=== PATIENT | female | born 1985 | race Caucasian/White ===

== ENCOUNTER → 2018-02-28 | Outpatient (CLI) | payer OTHER ==
[~2018-02-28] MED LIST: ACEASPCAF; ACEASPCAF PO; ACET500 PO; ALBU90OI INH; ALBU90OI6; ALBU90OI61 INH; AZIT250 PO; BUSP5 PO; Bactrim Ds Tab1 EACH PO; CIPR500 PO; CITA20 MT; CITA20 PO; CLIN300 PO; CLON.2 PO; CLON1 PO; CLON2 PO; CODACE30 PO; CRUTCH4 USE; CYCL10; CYCL10 PO; Celexa40 MG PO; Cleocin HCl150 MG PO; DIAZ5; DIAZ5 PO; DIPATR PO; DOCU100 PO; DOXY100 PO; DOXY100T53; Estradiol0.5 MG PO; GABA300 PO; GABA800 MT; HYDACE10B; HYDACE10B PO; HYDACE5 PO; HYDACE7.5 PO; HYDPAM25; IBUP200 PO; IBUP400 PO; IBUP600 PO; IBUP800 PO; INDO50 PO; KETO10 PO; Keflex500 MG PO; LABE100; LISI5; LORA1 PO; METF500 PO; METR250 PO; NAPR500 PO; NAPR550 PO; NIFE30ER; NYST100SU MT; Neurontin300 MG PO; Norco 10-325 T1 EACH PO; OMEP10ER; OMEP20ER PO; OXYACE5T; OXYACE5T PO; OXYB5 PO; OXYC5 PO; PANT40 PO; PHENA100 PO; PHENA200 PO; PREVPAC PO; PROG100 PO; PROGESTERONE PO; PROM25 PO; PROP10; RANI150; RANI150 PO; RXCYCL10 PO; RXHYDACE PO; RXNAPNA550 PO; RXPROM25 PO; RXTRAM50 PO; SULTRIDS PO; SULTRISS PO; TIZANIDINE HCL2 MG PO; TRAM50 PO; TRAZ50 PO; UNKNOWN ABX PO
== END ==
LOC: LAB 13:56 → LAB SHORT 13:56
DX: L02.811 Cutaneous abscess of head [any part, except face] (principal)
CPT/HCPCS: 87070; 87077; 87147; 87186; 87205

== ENCOUNTER 2018-05-17 15:16 | Emergency (ER) | payer OTHER ==
[~2018-05-17] VITALS: Ht 165.1 cm; Wt 99.8 kg
== END 2018-05-17 18:02 | disposition left against medical advice (07) ==
LOC: ER 15:16
DX: Z53.21 Procedure and treatment not carried out due to patient leaving prior to being seen by health care provider (principal)

== ENCOUNTER 2018-05-26 12:39 | Emergency (ER) | payer OTHER ==
[~2018-05-26] VITALS: Ht 167.6 cm; Wt 99.8 kg
[~2018-05-26 12:39] MED LIST changes: -METF500 PO; +METF500C PO
[2018-05-26] MEDS ORDERED: Monodox100 MG PO (13:13)
[2018-05-26] MEDS ORDERED: ACET500 PO (13:23)
[2018-05-26] MEDS ORDERED: MELO7.5 PO (13:55)
[2018-05-26] MEDS ORDERED: PARO20 PO (13:57)
== END 2018-05-26 13:25 | disposition home or self-care (01) ==
LOC: ER 12:39
DX: L03.111 Cellulitis of right axilla (principal); Z88.0 Allergy status to penicillin; Z88.8 Allergy status to other drugs, medicaments and biological substances; Z79.899 Other long term (current) drug therapy; Z79.84 Long term (current) use of oral hypoglycemic drugs; E11.9 Type 2 diabetes mellitus without complications; J45.909 Unspecified asthma, uncomplicated; F17.210 Nicotine dependence, cigarettes, uncomplicated
CPT/HCPCS: 99282

== ENCOUNTER 2019-01-17 16:10 | Emergency (ER) | payer OTHER ==
[~2019-01-17] VITALS: Ht 162.6 cm; Wt 95.2 kg
[~2019-01-17 16:10] MED LIST changes: +MELO7.5 PO; +Monodox100 MG PO; +PARO20 PO
[2019-01-17] MEDS ORDERED: BENZ100A PO (19:52)
== END 2019-01-17 20:20 | disposition home or self-care (01) ==
LOC: ER 16:10
DX: B34.9 Viral infection, unspecified (principal); J45.909 Unspecified asthma, uncomplicated; E11.9 Type 2 diabetes mellitus without complications; F17.200 Nicotine dependence, unspecified, uncomplicated; Z86.19 Personal history of other infectious and parasitic diseases; Z88.0 Allergy status to penicillin; Z88.1 Allergy status to other antibiotic agents; Z88.8 Allergy status to other drugs, medicaments and biological substances; Z79.84 Long term (current) use of oral hypoglycemic drugs
CPT/HCPCS: 87081; 87430; 99283

== ENCOUNTER → 2019-02-22 | Outpatient (CLI) | payer OTHER ==
[~2019-02-22] MED LIST changes: +BENZ100A PO
[2019-02-23 09:51] LABS: G. vaginalis (DNA Probe) Positive (NEGATIVE); T. vaginalis (DNA Probe) Negative (NEGATIVE)
[2019-02-23 09:52] LABS: Candida species (DNA Probe) Negative (NEGATIVE)
[2019-02-25 06:07] LABS: CHLAMYDIA TRACHOMATIS, NAA Negative (Negative); NEISSERIA GONORRHOEAE, NAA Negative (Negative)
== END | disposition home or self-care (01) ==
LOC: LAB SHORT 15:10 → LAB 15:10 → LAB FUT 02-23 08:50
PROVIDERS: Nurse Practitioner Family
DX: N89.8 Other specified noninflammatory disorders of vagina (principal)
CPT/HCPCS: 87480; 87510; 87660

== ENCOUNTER 2019-04-16 09:28 | Emergency (ER) | payer OTHER ==
[~2019-04-16] VITALS: Ht 165.1 cm; Wt 99.8 kg
[2019-04-16] MEDS ORDERED: Zithromax250 MG PO (10:39)
[2019-04-16] MEDS ORDERED: PRED20 PO (10:39)
[2019-04-16] MEDS ORDERED: Sudogest30 MG PO (10:39)
[2019-04-16] MEDS ORDERED: Flonase 0.05% N16 GM (10:39)
== END 2019-04-16 10:49 | disposition home or self-care (01) ==
LOC: ER 09:28
DX: J18.1 Lobar pneumonia, unspecified organism (principal); Z88.0 Allergy status to penicillin; Z88.8 Allergy status to other drugs, medicaments and biological substances; Z79.84 Long term (current) use of oral hypoglycemic drugs; Z79.899 Other long term (current) drug therapy; E11.9 Type 2 diabetes mellitus without complications; J45.909 Unspecified asthma, uncomplicated; F17.210 Nicotine dependence, cigarettes, uncomplicated; F17.290 Nicotine dependence, other tobacco product, uncomplicated
CPT/HCPCS: 71046; 94640; 99283-25; J7512

== ENCOUNTER → 2021-06-29 | Outpatient (CLI) | payer OTHER ==
[~2021-06-29] MED LIST changes: +Flonase 0.05% N16 GM; +PRED20 PO; +Sudogest30 MG PO; +Zithromax250 MG PO
[2021-06-29 13:54] LABS: BASOPHILS ABSOLUTE AUTO 0.06 K/mm3 (0.00-0.23); BASOPHILS PERCENT AUTO 0 % (0-2); EOSINOPHILS ABSOLUTE AUTO 0.34 K/mm3 (0.00-0.68); EOSINOPHILS PERCENT AUTO 2 % (0-6); Hematocrit 38.6 % (33.0-51.0); Hemoglobin 12.6 g/dL (11.5-16.0); IMMATURE GRAN PERCENT AUTO 1 % (0-1); LYMPHOCYTES PERCENT AUTO 20 % (21-46); MONOCYTES ABSOLUTE AUTO 0.73 K/mm3 (0.16-1.47); MONOCYTES PERCENT AUTO 4 % (4-13); Mean Corpuscular HGB 28.7 pg (26.0-34.0); Mean Corpuscular HGB Conc 32.6 g/dL (31.5-36.5); Mean Corpuscular Volume 88 fL (80-100); Mean Platelet Volume 10.9 fL (9.1-12.4); NEUTROPHILS ABSOLUTE AUTO 14.19 K/mm3 (1.96-9.15); NEUTROPHILS PERCENT AUTO 73 % (41-73); Platelet Count 444 K/mm3 (150-400); Red Blood Cell Count 4.39 M/mm3 (3.80-5.20); White Blood Cell Count 19.32 K/mm3 (4.00-11.30)
[2021-06-29 14:01] LABS: Alanine Aminotransfer (ALT/SGP 53 U/L (12-78); Albumin/Globulin Ratio 0.6 (0.8-1.8); Alk Phos 102 U/L (40-126); Anion Gap 12 mmol/L (6-16); Aspartate Aminotrans (AST/SGOT 50 U/L (12-37); Bilirubin, Total 0.3 mg/dL (0.1-1.0); Blood Urea Nitrogen 4 mg/dL (8-24); Bun/Creatinine Ratio 6.7 (12.0-20.0); CO2, Blood 26 mmol/L (21-32); Calcium, Blood 9.1 mg/dL (8.5-10.1); Chloride, Blood 99 mmol/L (98-108); Globulin, Blood 4.8 g/dL (2.2-4.0); Glomerular Filtration Rate >60 (60-); Glucose, Blood 83 mg/dL (70-99); Potassium, Blood 3.7 mmol/L (3.5-5.5); Sodium, Blood 137 mmol/L (136-145); Total Protein, Blood 7.8 g/dL (6.4-8.2)
== END | disposition home or self-care (01) ==
LOC: LAB 13:47 → LAB SHORT 13:47
PROVIDERS: Family Medicine
DX: Z20.822 Contact with and (suspected) exposure to COVID-19 (principal); R53.83 Other fatigue
CPT/HCPCS: 80053; 83880; 85025; 85379; 87040

== ENCOUNTER → 2021-06-29 | Outpatient (CLI) | payer OTHER ==
[2021-07-01 15:36] LABS: CORONAVIRUS (COVID19) CSH-NRL Negative (Negative)
== END | disposition home or self-care (01) ==
LOC: LAB 14:49 → LAB SHORT 14:49
PROVIDERS: Family Medicine
DX: Z20.822 Contact with and (suspected) exposure to COVID-19 (principal)
CPT/HCPCS: 87070; 87205; U0003

== ENCOUNTER → 2021-08-18 | Outpatient (CLI) | payer OTHER | LOC: LAB 08:10 → LAB SHORT 08:10 | DX: L01.00 Impetigo, unspecified (principal) | CPT/HCPCS: 87070; 87205 ==

== ENCOUNTER → 2021-12-17 | Outpatient (CLI) | payer OTHER ==
[~2021-12-17] MED LIST changes: +CATAPRES0.1 MG PO; +Cetirizine HCl10 MG PO; +FLUOXETINE HCL60 MG PO; +LIDO700A20 TOP; +OMEPRAZOLE MAGN20 M1 PO; +Robaxin750 MG PO; +SEROQUEL100 MG PO; +TOPI25 PO
[2021-12-21 16:10] LABS: HPV 16 Negative (Negative); HPV 18 Negative (Negative); HPV OTHER HR TYPES Positive (Negative)
[2021-12-22 06:47] LABS: CHLAMYDIA TRACHOMATIS, NAA Negative (Negative)
== END | disposition home or self-care (01) ==
LOC: LAB SHORT 15:21
PROVIDERS: Obstetrics & Gynecology
DX: Z01.419 Encounter for gynecological examination (general) (routine) without abnormal findings (principal); Z11.3 Encounter for screening for infections with a predominantly sexual mode of transmission
CPT/HCPCS: 87491; 87591; 87624; G0123